=== PATIENT | female | born 1935 ===

== ENCOUNTER 2018-11-08 21:37 | Emergency (ER) | payer OTHER ==
[2018-11-08] MEDS: ACETAMINOPHEN 325 MG TAB PO (22:03)
== END 2018-11-08 23:37 | disposition home or self-care (01) ==
LOC: FTE 21:37
DX: S82.891A Other fracture of right lower leg, initial encounter for closed fracture (principal); I10 Essential (primary) hypertension; X50.1XXA Overexertion from prolonged static or awkward postures, initial encounter; Y92.810 Car as the place of occurrence of the external cause
CPT/HCPCS: 73610; 73610-RT; 99283-25